=== PATIENT | female | born 1970 ===

== ENCOUNTER → 2018-08-11 | Outpatient (REF) ==
[2018-08-11 08:55] LABS: IRON,SERUM 38 ug/dL (35-150)
[2018-08-11 09:04] LABS: TOTAL IRON BINDING CAPACITY 391 ug/dL (265-497)
[2018-08-11 09:30] LABS: FERRITIN 19 ng/mL (6-137)
== END ==
LOC: ZLAB.WCH 08:41
PROVIDERS: Internal Medicine
DX: Z01.89 Encounter for other specified special examinations (principal)

== ENCOUNTER → 2018-09-15 | Outpatient (REF) ==
[2018-09-15 16:49] LABS: IRON,SERUM 37 ug/dL (35-150)
[2018-09-15 16:59] LABS: TOTAL IRON BINDING CAPACITY 390 ug/dL (265-497)
[2018-09-15 17:27] LABS: FERRITIN 21 ng/mL (6-137)
== END ==
LOC: ZLAB.WCH 16:01
PROVIDERS: Internal Medicine
DX: Z01.89 Encounter for other specified special examinations (principal)